=== PATIENT | female | born 1995 | race Caucasian/White ===

== ENCOUNTER 2017-02-09 15:36 | Emergency (ER) | payer MEDICAID, OTHER ==
[~2017-02-09] VITALS: Ht 167.6 cm; Wt 107.5 kg
[2017-02-09 16:04] VITALS: BP 101/61
--- NOTE | 2017-02-09 17:55 | NUR ---
PT PLACED IN OVERFLOW CHAIR.
--- NOTE | 2017-02-09 18:10 | NUR ---
Patient being evaluated by ALEKSEY Mora in overflow.
[2017-02-09] MEDS ORDERED: DEXAMETHASONE 4 MG/ML VIAL IM ONE (18:20)
[2017-02-09] MEDS ORDERED: IPRATROPIUM 0.02% 0.5 MG/2.5 ML NEBU INH ONE (18:20)
[2017-02-09] MEDS ORDERED: IBUPROFEN 400 MG TAB PO ONE (18:20)
[2017-02-09] MEDS ORDERED: ALBUTEROL 0.083% 2.5 MG/3 ML NEBU INH ONE (18:20)
--- NOTE | 2017-02-09 18:28 | NUR ---
RT called for breathing tx.
[2017-02-09 19:38] VITALS: BP 100/68
--- NOTE | 2017-02-09 19:39 | NUR ---
Patient discharged with v/s stable. Written and verbal after care instructions given and explained. Patient alert, oriented and verbalized understanding of instructions. Ambulatory with steady gait. All questions addressed prior to discharge. ID band removed. Patient advised to follow up with PMD. Rx of AMOXICILLIN 500MG BID, PROAIR HFA 90 given. Patient educated on indication of medication including possible reaction and side effects. Opportunity to ask questions provided and answered.
== END 2017-02-09 19:39 | disposition home or self-care (01) ==
LOC: MED 15:36
DX: J03.90 Acute tonsillitis, unspecified (principal); J06.9 Acute upper respiratory infection, unspecified
CPT/HCPCS: 71020; 81025; 94640; 96372; 99284; J1100; J7613; J7644

== ENCOUNTER 2018-07-15 08:55 | Emergency (ER) | payer OTHER ==
[~2018-07-15] VITALS: Ht 167.6 cm; Wt 107.1 kg
[2018-07-15 09:00] VITALS: BP 140/69
[2018-07-15 09:27] LABS: BASOPHILS % (AUTO) 0.3 % (0.0-2.0); EOSINOPHILS # (AUTO) 0.1 K/uL (0-0.4); EOSINOPHILS % (AUTO) 0.9 % (0.0-4.0); HEMATOCRIT 41.2 % (36-48); HEMOGLOBIN 13.5 g/dL (12.0-16.0); LYMPHOCYTES # (AUTO) 2.2 K/uL (2.5-16.5); LYMPHOCYTES % (AUTO) 22.6 % (20.5-51.1); MEAN CORPUSCULAR HEMOGLOBIN 28 pg (27-31); MEAN CORPUSCULAR HGB CONC 33 g/dL (33-37); MEAN CORPUSCULAR VOLUME 85.2 fL (80-94); MONOCYTES # (AUTO) 0.7 K/uL (0.8-1.0); NEUTROPHILS # (AUTO) 6.8 K/uL (1.8-7.7); NEUTROPHILS % (AUTO) 69.2 % (42.2-75.2); PLATELET COUNT (AUTO) 367 K/uL (140-450); RED BLOOD CELL COUNT(AUTO) 4.84 MIL/uL (4.20-5.40); RED CELL DISTRIBUTION WIDTH 14.2 % (11.6-13.7); WHITE BLOOD COUNT (AUTO) 9.9 K/uL (4.8-10.8)
[2018-07-15 09:41] LABS: ANION GAP 13.9 (8-16); CARBON DIOXIDE 23.8 mmol/L (21-32); CREATININE 0.7 mg/dL (0.6-1.3); POTASSIUM 3.7 mmol/L (3.5-5.1)
[2018-07-15 10:04] LABS: APPEARANCE,URINE HAZY (CLEAR); COLOR,URINE YELLOW (YELLOW)
[2018-07-15 10:05] LABS: BLOOD, URINE NEGATIVE (NEGATIVE); UGLUCOSE NEGATIVE (NEGATIVE)
[2018-07-15 10:06] LABS: BILIRUBIN,URINE NEGATIVE (NEGATIVE); LEUKOCYTE ESTERASE ,URINE 2+ (NEGATIVE); NITRITE, URINE NEGATIVE (NEGATIVE)
[2018-07-15 10:20] LABS: RBC,URINE 0-5 (RARE) /HPF (0-5)
[2018-07-15 10:32] VITALS: BP 142/70
== END 2018-07-15 10:34 | disposition home or self-care (01) ==
LOC: MED 08:55
DX: O23.41 Unspecified infection of urinary tract in pregnancy, first trimester (principal); Z3A.01 Less than 8 weeks gestation of pregnancy
CPT/HCPCS: 36415; 76801; 76817; 80048; 81001; 81025; 84702; 85025; 86900; 86901; 87086; 87186; 99285; Q0092

== ENCOUNTER 2021-12-31 06:28 | Emergency (ER) | payer OTHER ==
[~2021-12-31] VITALS: Ht 157.5 cm; Wt 101.6 kg
[2021-12-31 06:35] VITALS: BP 120/76
--- NOTE | 2021-12-31 06:42 | NUR ---
PATIENT AMBULATED TO BED 5
--- NOTE | 2021-12-31 06:58 | NUR ---
26 Y/O F BIB SELF FOR WORSENING ANXIETY SINCE THURSDAY. PT HAS BEEN DEALING WITH IT SINCE THURSDAY . PT HAS BEEN DIAGNOSED WITH ANXIETY/ DEPRESSION. PT HAS BEEN DEALING WITH THIS FOR A X3 YEARS AND HAS BEEN PRESCRIBED HYDROXYZINE. PT DENIES SI,HI. PT STATES SHE WOKE UP AND HAS NOT BEEN ABLE TO STAY ASLEEP. PT DENIES CP/N/F/V/SOB RX: HYDROXYZINE PMH: ANXIETY ALLERGIES: NKA
[2021-12-31] MEDS ORDERED: ZOLP5TAB1 PO (06:59)
--- NOTE | 2021-12-31 07:11 | NUR ---
Patient discharged with v/s stable. Written and verbal after care instructions given and explained. Patient alert, oriented and verbalized understanding of instructions. Ambulatory with steady gait. All questions addressed prior to discharge. ID band removed. Patient advised to follow up with PMD. Rx teri KRISHNAMURTHY given. Opportunity to ask questions provided and answered.
== END 2021-12-31 07:11 | disposition home or self-care (01) ==
LOC: MED 06:28
DX: F43.9 Reaction to severe stress, unspecified (principal); G47.00 Insomnia, unspecified
CPT/HCPCS: 99283